=== PATIENT | male | born 1955 | race Asian ===

== ENCOUNTER 2020-11-28 22:33 | Emergency (ER) | payer BC ==
[~2020-11-28] VITALS: Ht 157.5 cm; Wt 62.6 kg
[2020-11-28] MEDS ORDERED: LIPITOR 20 MG T20 M1 PO (22:51)
[2020-11-29 00:11] VITALS: BP 131/79
== END 2020-11-29 00:11 ==
LOC: ER 22:33
DX: S51.812A Laceration without foreign body of left forearm, initial encounter (principal); E78.00 Pure hypercholesterolemia, unspecified; Z79.899 Other long term (current) drug therapy; W45.8XXA Other foreign body or object entering through skin, initial encounter; Y93.89 Activity, other specified; Y92.89 Other specified places as the place of occurrence of the external cause; Y99.0 Civilian activity done for income or pay